=== PATIENT | male | born 1955 | race Two or more races ===

== ENCOUNTER 2024-09-10 14:51 | Emergency (ER) | payer OTHER ==
[~2024-09-10] VITALS: Ht 180.3 cm; Wt 101.0 kg
--- NOTE | 2024-09-10 15:45 | DVH ---
CLINICAL INDICATION: PAIN FALL TECHNIQUE: 3 radiographic views of the right shoulder were obtained. Comparison: None FINDINGS/IMPRESSION: There is deformity of the glenoid with no obvious fracture lines noted. A nondisplaced fracture can n ot be excluded. There is slight inferior displacement of the humeral head with widening of the acromial humeral inter quiana without silvestre dislocation. Finding May possibly be from joint effusion. Calcified granuloma over the right lateral lower lung zone.
[2024-09-10] MEDS ORDERED: TRAM50TA2 PO (16:15)
--- NOTE | 2024-09-10 16:16 | ED.PDOC ---
Musculoskeletal HPI Comments This patient is a 68-year-old obese male who arrives the ED today for evaluation of right shoulder pain concerns. Patient states he has a history right shoulder concerns and that unfortunately last night, he had a mechanical trip and fall and landed on the right shoulder. Patient arrives without definitive deformity. Patient does have significant reduced range of motion. Patient denies any head trauma. Patient was mildly hypertensive and tachycardic at arrival. Chief Complaint: Fall Injury Time Seen by MD: 15:42 Reviewed Notes: Nurses Notes Allergies: Coded Allergies: NO KNOWN ALLERGIES (Unverified , 09/10/24) Information Source: Patient Mode of Arrival: Ambulatory Location: Right Extremity Location: Shoulder Timing: Days Prehospital treatment: None Severity: Moderate Able to Move Extremity: No Bear Weight: Fully Pain: Moderate Hand Dominance: Right Mechanism: Blunt Trauma Circumstances: Fall, Accident Onset of Symptoms: After Trauma Symptoms: Swelling, Pain DVT Risk Factors: NONE Associated signs and symptoms: Shoulder pain Past Medical History PAST MEDICAL HISTORY: Denies Past Medical History (Other): History of right shoulder concerns Surgical History: Denies all surgeries Family History Family History: Reviewed,noncontributory to illness, No family hx of Cancer, No family hx of DM, No family hx of Heart jassi, No family hx of HTN, No family hx ofKidney jassi, No family hx of Liver jassi, No family hx of Lung jassi, No family hx of Stroke Social History Smoker: Non-Smoker Alcohol: Denies ETOH Use Drugs: Denies Drug Use Lives In: Home Constitutional: denies: chills, diaphoresis, fatigue, fever, malaise, sweats, weakness, others EENTM: denies: blurred vision, double vision, ear bleeding, ear discharge, ear drainage, ear pain, ear ringing, eye pain, eye redness, hearing loss, mouth pain, mouth swelling, nasal discharge, nose bleeding, nose congestion, nose pain, photophobia, tearing, throat pain, throat swelling, voice changes, others Respiratory: denies: cough, hemoptysis, orthopnea, SOB at rest, shortness of breath, SOB with excertion, stridor, wheezing, others Cardiovascular: denies: chest pain, dizzy spells, diaphoresis, Dyspnea on exertion, edema, irregular heart beat, left arm pain, lightheadedness, palpitations, PND, syncope, others Gastrointestinal: denies: abdomen distended, abdominal pain, blood streaked bowels, constipated, diarrhea, dysphagia, difficulty swallowing, hematemesis, melena, nausea, poor appetite, poor fluid intake, rectal bleeding, rectal pain, vomiting, others Genitourinary: denies: burning, dysuria, flank pain, frequency, hematuria, incontinence, penile discharge, penile sore, pain, testicle pain, testicle swelling, urgency, others Neurological: denies: dizziness, fainting, headache, left sided numbness, left sided weakness, numbness, paresthesia, pre-existing deficit, right sided numbness, right sided weakness, seizure, speech problems, tingling, tremors, weakness, others Musculoskeletal: denies: back pain, gout, joint pain, joint swelling, muscle pain, muscle stiffness, neck pain, others Integumetry: denies: bruises, change in color, change in hair/nails, dryness, laceration, lesions, lumps, rash, wounds, others Allergic/Immunocompromised: denies: Difficulty Healing, Frequent Infections, Hives, Itching, others Hematologic/Lymphatic: denies: anemia, blood clots, easy bleeding, easy bruising, swollen glands, others Endocrine: denies: excessive hunger, excessive sweating, excessive thirst, excessive urination, flushing, intolerance to cold, intolerance to heat, unexplained weight gain, unexplained weight loss, others Psychiatric: denies: anxiety, bipolar disorder, depression, hopeless, panic disorder, schizophrenia, sleepless, suicidal, others Physical Exam General Appearance: Moderate Distress ([id number] distress due to right shoulder pain concerns.), Obese HEENT: Normal ENT Inspection, Pharynx Normal, TMs Normal Neck: Full Range of Motion, Non-Tender, Normal, Normal Inspection Respiratory: Chest Non-Tender, Lungs Clear, No Accessory Muscle Use, No Respiratory Distress, Normal Breath Sounds Cardiovascular: No Edema, No JVD, No Murmur, No Gallop, Normal Peripheral Pulses, Regular Rate/Rhythm Breast Exam: Deferred Gastrointestinal: No Organomegaly, Non Tender, No Pulsatile Mass, Normal Bowel Sounds, Soft Genitalia: Deferred Pelvic: Deferred Rectal: Deferred Extremities: Other (Anterior and lateral aspect of the right shoulder is diffusely tender to palpation throughout. No definitive ecchymosis but significant reduced range of motion. Mild edema noted. Distal neurovascularly intact. No crepitus appreciated.) Neurologic: Alert, mobile game engineer II-XII nml as Tested, No Motor Deficits, Normal Affect, Normal Mood, No Sensory Deficits Cerebellar Function: Normal Reflexes: Normal Skin: Dry, Normal Color, Warm Lymphatic: No Adenopathy Was a procedure done? Was a procedure done?: No Differential Diagnosis EXT Differential Diagnosis: Fracture, Sprain, Dislocation, Contusion X-Ray, Labs, Meds, VS Vital Signs Date Time Temp Pulse Resp B/P (MAP) Pulse Ox O2 Delivery O2 Flow Rate FiO2 09/10/24 15:12 97.2 106 16 145/84 (104) 97 X-Ray, Labs, Meds, VS Comment All studies performed the ED were reviewed by me personally. Right shoulder x- ray showed that there was a deformity of the glenoid with no obvious fracture or lines noted additionally, there was a slight inferior displacement of the humeral head with widening of the acromial humeral interval without silvestre dislocation. Findings are suspicious for joint effusion concerns. Advised patient utilize ice therapy and pain medication. Patient should follow up with his primary care provider and orthopedist for continued management of right shoulder concerns. Time of 1ST Reevaluation: 16:14 Reevaluation 1ST: Improved Consultation: PCP, Other (Orthopedist) Patient Education/Counseling: Diagnosis, Treatment Family Education/Counseling: Diagnosis, Treatment Departure 1 Departure Time of Disposition: 16:14 Impression: Primary Impression: Contusion of right shoulder Disposition: HOME / SELF CARE / HOMELESS Condition: Stable Additional Instructions: Advised patient utilize pain medication as needed for symptomatic relief as well as ice therapy. A sling was not provided today as we do not want the shoulder to wind up in a frozen shoulder syndrome which is more concerning than the contusion. Patient should follow up with primary care provider and orthopedist for continued evaluation of right shoulder concerns. e-Prescriptions Tramadol Hcl (Tramadol Hcl) 50 Mg Tab 50 MG PO Q8HP PRN, #20 TAB Prov: RUSTY COOL PAC 09/10/24 Discharged With: Self, Friend Critical Care Note Critical Care Time?: No Stability Stability form required: No Heart Score Heart Score: Heart Score Response (Comments) Value History N/A 0 EKG N/A 0 Age >65 2 Risk Factors 1 or 2 risk factors 1 Troponin N/A 0 Total 3 RUSTY COOL PAC Sep 10, 2024 16:16
[2024-09-10 17:22] VITALS: BP 146/91; PULSE 105; RESP 18; TEMP 97.8; O2SAT 97
[2024-09-10] MEDS: traMADol HCL 50 MG TAB PO ONE (17:28)
== END 2024-09-10 17:53 | disposition home or self-care (01) ==
LOC: ER 14:51
DX: S40.011A Contusion of right shoulder, initial encounter (principal); W01.0XXA Fall on same level from slipping, tripping and stumbling without subsequent striking against object, initial encounter; Y93.89 Activity, other specified; Y92.89 Other specified places as the place of occurrence of the external cause; Y99.8 Other external cause status
CPT/HCPCS: 73030